=== PATIENT | male | born 1950 | race Caucasian/White ===

== ENCOUNTER 2018-07-19 07:28 | Day surgery (SDC) | payer BC ==
[2018-07-19] MEDS ORDERED: NEOMYCIN/POLY./DEXAM OPTH OINT OPTH ONE (07:29)
[2018-07-19] MEDS ORDERED: PROPOFOL 10 MG/ML VIAL IV ONE (07:29)
[2018-07-19] MEDS ORDERED: LIDOCAINE 2% MDV (20MG/ML) 20ML VIAL IV ONE ×2 (07:29)
[2018-07-19] MEDS ORDERED: TETRACAINE HCL 0.5% 15 ML OPTH BTL OPTH ONE (07:29)
[2018-07-19] MEDS ORDERED: EPINEPHRINE 1 MG/ML AMPUL SQ ONE (07:29)
[2018-07-19] MEDS ORDERED: CIPROFLOXACIN HCL 0.0015 GM, PHENYLEPHRINE HCL 0.05 GM, KETOROLAC TROMETHAMINE 0.000625 GM MC ONE ×5 (13:45)
--- NOTE | 2018-07-19 21:06 | Operative Note ---
DATE OF PROCEDURE: 07/19/18. PREOPERATIVE DIAGNOSIS: Nuclear sclerotic cataract, left eye. POSTOPERATIVE DIAGNOSIS: Nuclear sclerotic cataract, left eye. OPERATION: Phacoemulsification of cataractous lens with implantation of intraocular lens. LENS IMPLANT USED: Nova Model PCB00 + 16.0 diopters. COMPLICATIONS: None. PROCEDURE IN DETAIL: Following a retrobulbar and facial block, the patient was prepped and draped in the usual fashion for eye surgery. A lid speculum was placed in the left eye after which a 2.4 mm tunnel wound was placed at the temporal limbus and dissected into clear cornea. A paracentesis was placed at 2 o'clock hours to the left and right of the initial incision and the chamber deepened with Viscoelastic. The keratome was then used to enter the anterior chamber after which the continuous circular capsulorrhexis was accomplished without difficulty using a bent needle and a Utrata forceps. Hydrodissection and hydrodelineation of the lens was performed after which the nucleus of the lens was removed using the Phaco handpiece in the [id number] technique. The residual cortical material was irrigated and aspirated from the eye after which the bag and chamber were re-examined. The bag was re-inflated with Viscoelastic and the intraocular lens injected into the capsular bag where it centered well. The Viscoelastic was then copiously irrigated and aspirated from the eye after which the temporal tunnel wound and paracentesis were hydrated and the wounds were examined. They were noted to be watertight. The lid speculum was removed from the eye and the eye patched and shielded. The patient was transferred to the recovery room in satisfactory condition and given an appointment to be reexamined in the clinic later today or as directed by Dr. Mirza. JOB NUMBER: [id number] [facility]
== END 2018-07-19 09:55 | disposition home or self-care (01) ==
LOC: SUR 07:28
PROVIDERS: ATTEND Ophthalmology
DX: H25.12 Age-related nuclear cataract, left eye (principal); I10 Essential (primary) hypertension; E78.00 Pure hypercholesterolemia, unspecified; F17.210 Nicotine dependence, cigarettes, uncomplicated; Z95.5 Presence of coronary angioplasty implant and graft
CPT/HCPCS: J0171

== ENCOUNTER 2018-08-02 08:53 | Day surgery (SDC) | payer BC ==
[2018-08-02] MEDS ORDERED: PROPOFOL 10 MG/ML VIAL IV ONE (08:54)
[2018-08-02] MEDS ORDERED: TRIAMCINOLONE ACET 40 MG/ML VIAL IM ONE (08:54)
[2018-08-02] MEDS ORDERED: LIDOCAINE 2% MDV (20MG/ML) 20ML VIAL IV ONE ×2 (08:54)
[2018-08-02] MEDS ORDERED: EPINEPHRINE 1 MG/ML AMPUL SQ ONE (08:54)
[2018-08-02] MEDS ORDERED: NEOMYCIN/POLY./DEXAM OPTH OINT OPTH ONE (08:54)
[2018-08-02] MEDS ORDERED: TETRACAINE HCL 0.5% 15 ML OPTH BTL OPTH ONE (08:54)
[2018-08-02] MEDS ORDERED: CIPROFLOXACIN HCL 0.0015 GM, PHENYLEPHRINE HCL 0.05 GM, KETOROLAC TROMETHAMINE 0.000625 GM MC ONE ×5 (14:15)
--- NOTE | 2018-08-03 19:36 | Operative Note ---
DATE OF PROCEDURE: 08/02/18. PREOPERATIVE DIAGNOSIS: Nuclear sclerotic and posterior subcapsular cataract, right eye. POSTOPERATIVE DIAGNOSIS: Nuclear sclerotic and posterior subcapsular cataract, right eye. OPERATION: Phacoemulsification of cataractous lens with implantation of intraocular lens. LENS IMPLANT USED: Nova Model PCB00 + 15.5 diopters. COMPLICATIONS: None. PROCEDURE IN DETAIL: Following a retrobulbar and facial block, the patient was prepped and draped in the usual fashion for eye surgery. A lid speculum was placed in the right eye after which a 2.4 mm tunnel wound was placed at the temporal limbus and dissected into clear cornea. A paracentesis was placed at 2 o'clock hours to the left and right of the initial incision and the chamber deepened with Viscoelastic. The keratome was then used to enter the anterior chamber after which the continuous circular capsulorrhexis was accomplished without difficulty using a bent needle and a Utrata forceps. Hydrodissection and hydrodelineation of the lens was performed after which the nucleus of the lens was removed using the Phaco handpiece in the [id number] technique. The residual cortical material was irrigated and aspirated from the eye after which the bag and chamber were re-examined. The bag was re-inflated with Viscoelastic and the intraocular lens injected into the capsular bag where it centered well. The Viscoelastic was then copiously irrigated and aspirated from the eye after which the temporal tunnel wound and paracentesis were hydrated and the wounds were examined. They were noted to be watertight. The lid speculum was removed from the eye and the eye patched and shielded. The patient was transferred to the recovery room in satisfactory condition and given an appointment to be reexamined in the clinic later today or as directed by Dr. Mirza. [facility] [id number] [facility]
== END 2018-08-02 11:45 | disposition home or self-care (01) ==
LOC: SUR 08:53
PROVIDERS: ATTEND Ophthalmology
DX: H25.11 Age-related nuclear cataract, right eye (principal); I10 Essential (primary) hypertension; E78.00 Pure hypercholesterolemia, unspecified; I25.10 Atherosclerotic heart disease of native coronary artery without angina pectoris; I63.9 Cerebral infarction, unspecified; I25.2 Old myocardial infarction; Z95.5 Presence of coronary angioplasty implant and graft
CPT/HCPCS: J0171; J3301

== ENCOUNTER 2018-12-20 08:40 | Day surgery (SDC) | payer BC ==
[2018-12-20] MEDS ORDERED: PROPOFOL 10 MG/ML VIAL IV ONE (08:41)
[2018-12-20] MEDS ORDERED: LIDOCAINE 2% MDV (20MG/ML) 20ML VIAL IV ONE (08:41)
--- NOTE | 2018-12-20 15:11 | Operative Note ---
OPERATION: Surveillance COLONOSCOPY. PREOPERATIVE DIAGNOSIS: Personal history of colon polyps. POSTOPERATIVE DIAGNOSIS: Chronic diverticulosis. PREPARATION QUALITY: Good to excellent. ESTIMATED BLOOD LOSS: None. SPECIMENS: None. COMPLICATIONS: None apparent. PROCEDURE: After informed consent was obtained from the patient, he was placed in the left lateral decubitus position in the endoscopy suite, sedated and monitored by the department of anesthesia. Digital rectal exam was unremarkable. A well-lubricated BLU513 colonoscope was inserted into the rectum and advanced to the cecum. Areas were rinsed throughout the length of the colon due to residual bilious mucus. Nonetheless, adequate visualization of the mucosa was obtained. There were scattered diverticula in the ascending colon and sigmoid colon. The cecum, ileocecal valve, and appendiceal orifice were unremarkable. Two views of the cecum were performed. The remainder of the ascending colon, transverse colon, descending colon, sigmoid colon, and rectum were otherwise unremarkable. Forward and J-turn views of the rectum and anorectum were unrevealing. The endoscope was straightened, the rectal ampulla deflated, and the endoscope was removed. RECOMMENDATIONS: The patient should follow a high-fiber diet. I recommend repeat exam in 5 years based on his history. As always, thank you for allowing me to participate in the healthcare of your patients. CC: NOAH EASON MD, FACP MTDD
== END 2018-12-20 10:38 | disposition home or self-care (01) ==
LOC: HOP 08:40
PROVIDERS: ATTEND Internal Medicine Gastroenterology
DX: Z12.11 Encounter for screening for malignant neoplasm of colon (principal); Z86.010 Personal history of colon polyps; K57.30 Diverticulosis of large intestine without perforation or abscess without bleeding; I10 Essential (primary) hypertension; E78.00 Pure hypercholesterolemia, unspecified
CPT/HCPCS: 00812; G0105